=== PATIENT | female | born 1945 | race Hispanic/Latino ===

== ENCOUNTER → 2018-04-06 | Outpatient (CLI) | payer MEDICARE ==
[~2018-04-06] MED LIST: AMLO5TAB7 PO; CA C1TAB73 PO; CALC1TAB2 PO; FOLI1TAB15 PO; LOSA100T20 PO; LOVA40TA2 PO; NAPR375T6 PO
== END | disposition home or self-care (01) ==
LOC: RAH 08:51
PROVIDERS: ATTEND Internal Medicine
DX: Z12.31 Encounter for screening mammogram for malignant neoplasm of breast (principal)
CPT/HCPCS: 77067

== ENCOUNTER 2018-04-17 13:41 | Inpatient (IN) | payer MEDICARE ==
[~2018-04-17] VITALS: Ht 149.9 cm; Wt 79.0 kg
[2018-04-17 14:49] VITALS: BP 151/76
[2018-04-17 16:04] LABS: APPEARANCE,URINE Clear (CLEAR); BILIRUBIN,URINE Negative (NEGATIVE); COLOR,URINE Yellow (YELLOW); GLUCOSE, URINE (UA) Negative (NEGATIVE); KETONES,URINE Negative (NEGATIVE); LEUKOCYTE ESTERASE ,URINE Small (NEGATIVE); NITRATE,URINE Negative (NEGATIVE); OCCULT BLOOD,URINE Negative (NEGATIVE); PROTEIN,URINE Negative (NEGATIVE)
[2018-04-17] MEDS ORDERED: CHOL100040 PO (16:09)
[2018-04-17] MEDS ORDERED: calcium citrate PO (16:09)
[2018-04-17] MEDS ORDERED: FOLI0.8T PO (16:09)
[2018-04-17] MEDS ORDERED: AMLO5TAB7 PO (16:09)
[2018-04-17] MEDS ORDERED: LOVA40TA2 PO (16:09)
[2018-04-17] MEDS ORDERED: ASPI-891 PO (16:09)
[2018-04-17] MEDS ORDERED: LOSA100T20 PO (16:09)
[2018-04-17 16:24] LABS: BACTERIA,URINE None Seen /HPF (None Seen); RBC,URINE 0-1 /HPF (0-1); SQUAMOUS EPITHELIAL CELL,UR 0-2 /HPF (0-2); WBC,URINE 0-1 /HPF (0-1)
[2018-04-17] MEDS: CLINDAMYCIN 900 MG/D5% WATER 50 ML IV SCH (17:15)
[2018-04-20] VITALS (27 sets, daily range): BP systolic 93–167; BP diastolic 45–93
[2018-04-20] MEDS ORDERED: LACTATED RINGERS 1000ML 1,000 ML IV ONE (07:22)
[2018-04-20] MEDS ORDERED: TRANEXAMIC ACID 1000MG/10ML IV ONE (07:26)
[2018-04-20] MEDS ORDERED: CLINDAMYCIN PHOSPHATE 150 MG/ML 6ML VIAL ONE (07:26)
[2018-04-20] MEDS ORDERED: BUPIVACAINE/EPI/PF 0.25% 30ML VIAL IJ ONE (07:26)
[2018-04-20] MEDS ORDERED: ONDANSETRON HCL 4 MG/2 ML VIAL ONE (08:23)
[2018-04-20] MEDS ORDERED: GLYCOPYRROLATE 1 MG/5 ML SYRINGE ONE (08:23)
[2018-04-20] MEDS ORDERED: DEXAMETHASONE SOD PHOSPHATE 10MG/ML 1ML VIAL ONE (08:23)
[2018-04-20] MEDS ORDERED: PROPOFOL 10 MG/ML 20ML VIAL IV ONE (08:23)
[2018-04-20] MEDS ORDERED: LIDOCAINE PF 2% 5ML ABBOJECT ONE ×2 (08:23→08:24)
[2018-04-20] MEDS ORDERED: MIDAZOLAM HCL 1 MG/ML 2ML VIAL ONE (08:24)
[2018-04-20] MEDS ORDERED: NEOSTIGMINE 5MG/5ML SYR IV ONE (08:24)
[2018-04-20] MEDS ORDERED: ROCURONIUM 10MG/1ML SYR 10 MG/ML ML ONE (08:24)
[2018-04-20] MEDS ORDERED: FENTANYL CITRATE PF 50 MCG/1 ML 2ML VIAL ONE (08:24)
[2018-04-20] MEDS: CLINDAMYCIN 900 MG/D5% WATER 50 ML IV SCH (08:45)
[2018-04-20] MEDS ORDERED: ROPIVACAINE 0.5% 5MG/ML 30ML IJ ONE (09:11)
[2018-04-20] MEDS ORDERED: FERROUS FUMARATE 324 MG TABLET PO PRN (11:45)
[2018-04-20] MEDS ORDERED: TEMAZEPAM 15 MG CAPSULE PO PRN (11:45)
[2018-04-20] MEDS ORDERED: POTASSIUM CHLORIDE 20MEQ/100ML 100 ML IV PRN (11:45)
[2018-04-20] MEDS: ACETAMINOPHEN EXTRA STRENGTH 500 MG TABLET PO SCH ×2 (11:45→17:12)
[2018-04-20] MEDS ORDERED: DiphenhydrAMINE HCL 50 MG/ML VIAL IVP PRN (11:45)
[2018-04-20] MEDS ORDERED: LIDOCAINE HCL-MPF 1% 2ML VIAL IVP PRN (11:45)
[2018-04-20] MEDS ORDERED: ONDANSETRON HCL 4 MG/2 ML VIAL IVP PRN (11:45)
[2018-04-20] MEDS ORDERED: POTASSIUM CHLORIDE 20 MEQ ERTAB PO PRN (11:45)
[2018-04-20] MEDS ORDERED: CALCIUM CARBONATE 500 MG TABLET PO PRN (11:45)
[2018-04-20] MEDS: PHARMACY COMMUNICATION MISC SCH ×3 (13:51→19:16)
[2018-04-20] MEDS: OXYCODONE HCL 5 MG TAB PO PRN (13:56)
[2018-04-20] MEDS: SODIUM CHLORIDE 0.9% 1000ML 1,000 ML IV SCH ×2 (13:59→20:20)
[2018-04-20] MEDS: CLINDAMYCIN 900 MG/D5% WATER 50 ML IVPB SCH (17:11)
[2018-04-20] MEDS: KETOROLAC TROMETHAMINE 15MG/ML IV PRN (17:13)
[2018-04-20] MEDS: CALCIUM CARBONATE 500 MG TABLET PO SCH (20:18)
[2018-04-20] MEDS: CELECOXIB 200 MG CAP PO SCH (20:18)
[2018-04-20] MEDS: PREGABALIN 25 MG CAP PO SCH (20:19)
[2018-04-20] MEDS: ASPIRIN 325 MG TABLET PO SCH (20:19)
[2018-04-21] VITALS: BP 124/64
[2018-04-21] MEDS: CLINDAMYCIN 900 MG/D5% WATER 50 ML IVPB SCH (00:08)
[2018-04-21] MEDS: SODIUM CHLORIDE 0.9% 1000ML 1,000 ML IV SCH (03:28)
[2018-04-21] MEDS: ACETAMINOPHEN EXTRA STRENGTH 500 MG TABLET PO SCH ×3 (03:28→19:39)
[2018-04-21 04:00] VITALS: BP 109/59
[2018-04-21 04:41] LABS: HEMATOCRIT 32.6 % (36-48); MEAN CORPUSCULAR HEMOGLOBIN 31.9 pg (27.0-33.0); MEAN CORPUSCULAR HGB CONC 34.3 g/dL (32.0-36.0); MEAN CORPUSCULAR VOLUME 92.9 fL (79-99); NUCLEATED RED BLOOD CELLS 0.1 % (0.0-0.19); PLATELET COUNT (AUTO) 185 K/uL (130-400); RED BLOOD CELL COUNT(AUTO) 3.51 MIL/uL (4.00-5.50); RED CELL DISTRIBUTION WIDTH 12.8 % (11.0-15.5)
[2018-04-21 04:59] LABS: CREATININE 0.8 mg/dL (0.5-1.5); POTASSIUM 3.1 mmol/L (3.5-5.1)
[2018-04-21] MEDS: POTASSIUM CHLORIDE 10% ELIXIR 20 MEQ/15 ML UDCUP PO PRN ×3 (05:27→16:46)
[2018-04-21 08:35] VITALS: BP 111/58
[2018-04-21] MEDS: FOLIC ACID 1 MG TABLET PO SCH (08:56)
[2018-04-21] MEDS: ASPIRIN 325 MG TABLET PO SCH ×2 (08:56→19:39)
[2018-04-21] MEDS: CELECOXIB 200 MG CAP PO SCH ×2 (08:56→19:39)
[2018-04-21] MEDS: LOSARTAN 100 MG TABLET PO SCH (08:56)
[2018-04-21] MEDS: Cholecalciferol (Vitamin D3) (Vitamin D3) 1,000 UNIT PO SCH (08:57)
[2018-04-21] MEDS: POLYETHYLENE GLYCOL 3350 17 GM POWD.PACK PO SCH (08:57)
[2018-04-21] MEDS: PREGABALIN 25 MG CAP PO SCH ×2 (08:57→19:38)
[2018-04-21] MEDS: Lovastatin 40 MG PO SCH ×2 (08:57→19:40)
[2018-04-21] MEDS: CALCIUM CARBONATE 500 MG TABLET PO SCH ×2 (08:58→19:39)
[2018-04-21] MEDS: OXYCODONE HCL 5 MG TAB PO PRN ×4 (08:59→19:38)
[2018-04-21] MEDS: PANTOPRAZOLE SODIUM 40 MG TABLET.DR PO SCH (08:59)
[2018-04-21] MEDS ORDERED: FAMOTIDINE 20MG TAB 20 MG TAB PO SCH (09:00)
[2018-04-21 11:31] VITALS: BP 130/65
[2018-04-21] MEDS: AMLODIPINE BESYLATE 5 MG TAB PO SCH (11:45)
[2018-04-21] MEDS: KETOROLAC TROMETHAMINE 15MG/ML IV PRN (11:46)
[2018-04-21 16:48] VITALS: BP 132/56
[2018-04-21 20:00] VITALS: BP 144/65
[2018-04-22] VITALS (7 sets, daily range): BP systolic 100–140; BP diastolic 51–67
[2018-04-22] MEDS: ACETAMINOPHEN EXTRA STRENGTH 500 MG TABLET PO SCH ×3 (03:50→19:47)
[2018-04-22] MEDS: OXYCODONE HCL 5 MG TAB PO PRN ×3 (08:30→19:47)
[2018-04-22] MEDS: PREGABALIN 25 MG CAP PO SCH ×2 (08:30→19:47)
[2018-04-22] MEDS: POLYETHYLENE GLYCOL 3350 17 GM POWD.PACK PO SCH (08:30)
[2018-04-22] MEDS: PANTOPRAZOLE SODIUM 40 MG TABLET.DR PO SCH (08:31)
[2018-04-22] MEDS: AMLODIPINE BESYLATE 5 MG TAB PO SCH (08:31)
[2018-04-22] MEDS: CALCIUM CARBONATE 500 MG TABLET PO SCH ×2 (08:31→19:46)
[2018-04-22] MEDS: FOLIC ACID 1 MG TABLET PO SCH (08:31)
[2018-04-22] MEDS: CELECOXIB 200 MG CAP PO SCH ×2 (08:31→19:46)
[2018-04-22] MEDS: LOSARTAN 100 MG TABLET PO SCH (08:31)
[2018-04-22] MEDS: ASPIRIN 325 MG TABLET PO SCH ×2 (08:31→19:46)
[2018-04-22] MEDS: Cholecalciferol (Vitamin D3) (Vitamin D3) 1,000 UNIT PO SCH (08:36)
[2018-04-22] MEDS: Lovastatin 40 MG PO SCH (19:47)
[2018-04-23] MEDS: OXYCODONE HCL 5 MG TAB PO PRN ×4 (01:07→15:31)
[2018-04-23] MEDS: ACETAMINOPHEN EXTRA STRENGTH 500 MG TABLET PO SCH ×2 (03:54→11:24)
[2018-04-23 04:48] VITALS: BP 118/55
[2018-04-23] MEDS ORDERED: BISACODYL 10 MG SUPP.RECT RC ONE (05:18)
[2018-04-23 08:02] VITALS: BP 128/65
[2018-04-23] MEDS: CALCIUM CARBONATE 500 MG TABLET PO SCH (08:31)
[2018-04-23] MEDS: POLYETHYLENE GLYCOL 3350 17 GM POWD.PACK PO SCH (08:31)
[2018-04-23] MEDS: AMLODIPINE BESYLATE 5 MG TAB PO SCH (08:32)
[2018-04-23] MEDS: ASPIRIN 325 MG TABLET PO SCH (08:32)
[2018-04-23] MEDS: PREGABALIN 25 MG CAP PO SCH (08:32)
[2018-04-23] MEDS: CELECOXIB 200 MG CAP PO SCH (08:32)
[2018-04-23] MEDS: PANTOPRAZOLE SODIUM 40 MG TABLET.DR PO SCH (08:32)
[2018-04-23] MEDS: LOSARTAN 100 MG TABLET PO SCH (08:32)
[2018-04-23] MEDS: FOLIC ACID 1 MG TABLET PO SCH (08:32)
[2018-04-23] MEDS: Cholecalciferol (Vitamin D3) (Vitamin D3) 1,000 UNIT PO SCH (08:38)
[2018-04-23 11:09] VITALS: BP 126/57
[2018-04-23] MEDS ORDERED: BISACODYL 10 MG SUPP.RECT RC PRN (11:45)
[2018-04-23] MEDS ORDERED: HYDR-4457 PO (13:13)
[2018-04-23] MEDS ORDERED: ASPI-1012 PO (13:13)
== END 2018-04-23 17:15 | DRG 470 ==
LOC: EDSTATUS 14:30 → DAHIP 04-20 06:17 → 4AH 04-20 10:44
PROVIDERS: ADMIT Orthopaedic Surgery; ATTEND Orthopaedic Surgery
PROC: 0SRC0J9 Replacement of Right Knee Joint with Synthetic Substitute, Cemented, Open Approach (ICD-10-PCS; principal; 2018-04-20 08:22)
DX: M17.11 Unilateral primary osteoarthritis, right knee (principal); I10 Essential (primary) hypertension; K21.9 Gastro-esophageal reflux disease without esophagitis; E78.00 Pure hypercholesterolemia, unspecified; H26.9 Unspecified cataract; G89.29 Other chronic pain; Z98.51 Tubal ligation status; Z90.49 Acquired absence of other specified parts of digestive tract; Z83.3 Family history of diabetes mellitus; Z82.49 Family history of ischemic heart disease and other diseases of the circulatory system; Z88.0 Allergy status to penicillin; Z88.8 Allergy status to other drugs, medicaments and biological substances
CPT/HCPCS: 36415; 80048; 81001; 85027; 88305; 88311; J1100; J1885; J2001; J2250; J2405; J2704; J2710; J2795; J3010; J3490; J7030; J7120

== ENCOUNTER 2018-10-06 07:43 | Day surgery (SDC) | payer MEDICARE ==
[~2018-10-06] VITALS: Ht 152.4 cm; Wt 70.3 kg
[~2018-10-06 07:43] MED LIST changes: -AMLO5TAB7 PO; +AMLO5TAB9 PO; +ASPI-1012 PO; -CA C1TAB73 PO; -CALC1TAB2 PO; +CHOL100040 PO; +FOLI0.8T PO; -FOLI1TAB15 PO; -LOSA100T20 PO; +LOSA100T58 PO; -NAPR375T6 PO; +SODIUM CHLORIDE 0.9% 1000ML 1,000 ML IV ONE; +calcium citrate PO
[2018-10-06] MEDS ORDERED: WHEA1POW2 PO (09:43)
[2018-10-06] MEDS ORDERED: GLYCOPYRROLATE 0.2 MG/ML 5 ML VIAL ONE (11:08)
[2018-10-06 11:18] VITALS: BP 125/57
[2018-10-06 11:24] VITALS: BP 139/62
[2018-10-06 11:30] VITALS: BP 135/55
[2018-10-06 11:36] VITALS: BP 128/67
== END 2018-10-06 11:44 | disposition home or self-care (01) ==
LOC: ENDO 07:43 → DAH 07:43 → ENDO 11:44
PROVIDERS: ATTEND Internal Medicine
DX: Z12.11 Encounter for screening for malignant neoplasm of colon (principal); D12.8 Benign neoplasm of rectum; K57.30 Diverticulosis of large intestine without perforation or abscess without bleeding; E78.5 Hyperlipidemia, unspecified; I10 Essential (primary) hypertension; M19.90 Unspecified osteoarthritis, unspecified site; Z68.31 Body mass index [BMI] 31.0-31.9, adult; Z79.899 Other long term (current) drug therapy; Z98.890 Other specified postprocedural states; Z98.49 Cataract extraction status, unspecified eye; Z88.0 Allergy status to penicillin; K64.0 First degree hemorrhoids
CPT/HCPCS: 45380; 88305; A4606; J3490; J7030

== ENCOUNTER → 2019-04-07 | Outpatient (CLI) | payer MEDICARE ==
[~2019-04-07] MED LIST changes: -SODIUM CHLORIDE 0.9% 1000ML 1,000 ML IV ONE; +WHEA1POW2 PO
== END | disposition home or self-care (01) ==
LOC: RAH 08:43
PROVIDERS: ATTEND Internal Medicine
DX: Z12.31 Encounter for screening mammogram for malignant neoplasm of breast (principal)
CPT/HCPCS: 77067

== ENCOUNTER → 2019-10-26 | Outpatient (CLI) | payer MEDICARE | END | disposition home or self-care (01) | LOC: RAH 11:16 | PROVIDERS: ATTEND Internal Medicine | DX: R07.9 Chest pain, unspecified (principal); Z90.49 Acquired absence of other specified parts of digestive tract | CPT/HCPCS: 71046 ==

== ENCOUNTER → 2020-04-07 | Outpatient (CLI) | payer MEDICARE ==
[~2020-04-07] MED LIST changes: +AMLO-257 PO; -AMLO5TAB9 PO
== END | disposition home or self-care (01) ==
LOC: RAH 09:33
PROVIDERS: ATTEND Internal Medicine
DX: Z12.31 Encounter for screening mammogram for malignant neoplasm of breast (principal); N64.89 Other specified disorders of breast
CPT/HCPCS: 77067

== ENCOUNTER → 2021-09-17 | Outpatient (CLI) | payer MEDICARE ==
[~2021-09-17] MED LIST changes: -FOLI0.8T PO; +FOLI0.8T3 PO
== END | disposition home or self-care (01) ==
LOC: RAH 13:36
PROVIDERS: ATTEND Internal Medicine
DX: M16.11 Unilateral primary osteoarthritis, right hip (principal); M47.816 Spondylosis without myelopathy or radiculopathy, lumbar region; M48.07 Spinal stenosis, lumbosacral region; Z90.49 Acquired absence of other specified parts of digestive tract
CPT/HCPCS: 72100; 73502

== ENCOUNTER → 2022-05-10 | Outpatient (CLI) | payer MEDICARE | END | disposition home or self-care (01) | LOC: RAH 13:43 | PROVIDERS: ATTEND Internal Medicine | DX: Z12.31 Encounter for screening mammogram for malignant neoplasm of breast (principal) | CPT/HCPCS: 77067 ==

== ENCOUNTER → 2022-05-23 | Outpatient (CLI) | payer MEDICARE | END | disposition home or self-care (01) | LOC: RAH 13:35 | PROVIDERS: ATTEND Internal Medicine | DX: I07.1 Rheumatic tricuspid insufficiency (principal); I11.9 Hypertensive heart disease without heart failure; M19.90 Unspecified osteoarthritis, unspecified site | CPT/HCPCS: 93306 ==

== ENCOUNTER → 2022-09-20 | Outpatient (CLI) | payer MEDICARE ==
[~2022-09-20] MED LIST changes: +IOHEXOL-350 75 ML VIAL IV ONE
== END | disposition home or self-care (01) ==
LOC: RAH 09:36
PROVIDERS: ATTEND Internal Medicine Gastroenterology
DX: N20.0 Calculus of kidney (principal); R10.31 Right lower quadrant pain; Z90.49 Acquired absence of other specified parts of digestive tract
CPT/HCPCS: 74178; Q9967

== ENCOUNTER → 2023-06-19 | Outpatient (CLI) | payer OTHER ==
[~2023-06-19] MED LIST changes: -IOHEXOL-350 75 ML VIAL IV ONE; -LOSA100T58 PO; +LOSA100T59 PO
== END | disposition home or self-care (01) ==
LOC: RAH 10:39
PROVIDERS: ATTEND Internal Medicine Cardiovascular Disease
DX: Z13.6 Encounter for screening for cardiovascular disorders (principal)
CPT/HCPCS: 75571

== ENCOUNTER → 2023-07-11 | Outpatient (CLI) | payer MEDICARE ==
[~2023-07-11] MED LIST changes: +IOHEXOL 350 MG/ML 100ML INFUS..BTL IV ONE; +METOPROLOL TARTRATE 1 MG/ML 5ML VIAL IV ONE
== END | disposition home or self-care (01) ==
LOC: RAH 07:47
PROVIDERS: ATTEND Internal Medicine Cardiovascular Disease
DX: M47.815 Spondylosis without myelopathy or radiculopathy, thoracolumbar region (principal); I25.10 Atherosclerotic heart disease of native coronary artery without angina pectoris
CPT/HCPCS: 75574; J3490; Q9967

== ENCOUNTER → 2023-07-21 | Outpatient (CLI) | payer MEDICARE ==
[~2023-07-21] MED LIST changes: -IOHEXOL 350 MG/ML 100ML INFUS..BTL IV ONE; -METOPROLOL TARTRATE 1 MG/ML 5ML VIAL IV ONE
== END | disposition home or self-care (01) ==
LOC: RAH 11:29
PROVIDERS: ATTEND Internal Medicine
DX: Z12.31 Encounter for screening mammogram for malignant neoplasm of breast (principal)
CPT/HCPCS: 77067

== ENCOUNTER → 2024-08-30 | Outpatient (CLI) | payer MEDICARE ==
--- NOTE | 2024-08-30 14:49 | HMCIMG ---
Lumbar spine 2 views Clinical Information: LOW BACK PAIN Comparison: None Findings: Exam of the lumbosacral spine demonstrates no evidence of fracture, subluxation. There are spondylitic changes and there are degenerative changes of the facet joints. There is straightening of the spine consistent with spasm. There is narrowing of the L5-S1 intervertebral disc space consistent with degenerative disc disease. The other disc spaces are intact. Bone mineralization is normal. Impression: Degenerative disc disease suspected at L5-S1. Other degenerative and chronic changes as noted.
== END | disposition home or self-care (01) ==
LOC: RAH 13:33
PROVIDERS: ATTEND Internal Medicine
DX: M51.370 Other intervertebral disc degeneration, lumbosacral region with discogenic back pain only (principal); M48.07 Spinal stenosis, lumbosacral region; M51.379 Other intervertebral disc degeneration, lumbosacral region without mention of lumbar back pain or lower extremity pain
CPT/HCPCS: 72100

== ENCOUNTER → 2024-11-19 | Outpatient (CLI) | payer MEDICARE ==
--- NOTE | 2024-11-19 12:10 | HMCIMG ---
CHEST 2VWS HISTORY: Preop COMPARISON: 10/26/2019 FINDINGS: Frontal and lateral projections of the chest were obtained. There is no acute pulmonary infiltrates or failure. The heart is not enlarged. No evidence of aortic calcification is seen. Degenerative changes are seen of the thoracolumbar spine. IMPRESSION: 1. No acute pulmonary infiltrates.
== END | disposition home or self-care (01) ==
LOC: RAH 11:33
PROVIDERS: ATTEND Internal Medicine
DX: Z01.818 Encounter for other preprocedural examination (principal); I12.9 Hypertensive chronic kidney disease with stage 1 through stage 4 chronic kidney disease, or unspecified chronic kidney disease; N18.9 Chronic kidney disease, unspecified; M47.815 Spondylosis without myelopathy or radiculopathy, thoracolumbar region
CPT/HCPCS: 71046

== ENCOUNTER → 2025-03-31 | Outpatient (CLI) | payer MEDICARE ==
[~2025-03-31] MED LIST changes: -ASPI-1012 PO; +ASPI-1146 PO; +CALC-1125 PO; +CHOL100034 PO; -CHOL100040 PO; -FOLI0.8T3 PO; +HYDR-4060 PO; -WHEA1POW2 PO; -calcium citrate PO
--- NOTE | 2025-03-31 16:37 | HMCIMG ---
CHEST 2VWS REASON: ENCOUNTER FOR OTHER PREPROCEDURAL EXAMINATION COMPARISON: Prior chest radiograph from 11/19/2024 is available. FINDINGS: Two views of the chest were obtained. Lungs are clear. Heart size is normal. There is no pulmonary vascular congestion. Mediastinum appears to be normal. The bony thorax demonstrate mild osteopenia. There is reversed right shoulder arthroplasty.. IMPRESSION: No acute cardiopulmonary process..
== END | disposition home or self-care (01) ==
LOC: RAH 15:26
PROVIDERS: ATTEND Internal Medicine
DX: Z01.818 Encounter for other preprocedural examination (principal); I12.9 Hypertensive chronic kidney disease with stage 1 through stage 4 chronic kidney disease, or unspecified chronic kidney disease; N18.9 Chronic kidney disease, unspecified; Z96.611 Presence of right artificial shoulder joint
CPT/HCPCS: 71046

== ENCOUNTER 2025-04-03 15:10 | Emergency (ER) | payer MEDICARE ==
[~2025-04-03] VITALS: Ht 147.3 cm; Wt 76.0 kg
--- NOTE | 2025-04-03 16:31 | HMCIMG ---
EXAM: CR right Shoulder, 2 View. CLINICAL HISTORY: r/o fx COMPARISON: None provided. FINDINGS: BONES: Right shoulder arthroplasty No fracture. No dislocation JOINTS: Moderate degenerative changes with subacromial spurring acromioclavicular joint SOFT TISSUES: The soft tissues are unremarkable. MISCELLANEOUS: Appears in alignment. IMPRESSION: 1. Right shoulder arthroplasty 2. Appears in alignment. 3. No fracture. No dislocation 4. Moderate degenerative changes with subacromial spurring acromioclavicular joint /[place]
[2025-04-03] MEDS: HYDROcodone/APAP 5/325 1 TAB TABLET PO ONE (16:46)
--- NOTE | 2025-04-03 17:21 | ERN ---
General Chief Complaint: Shoulder Injury/Pain Stated Complaint: RT SHOULDER PAIN Time Seen by MD: 15:12 Time Seen by Midlevel: 15:12 Source: patient History of Present Illness Initial Comments 72-year-old female presents to the emergency department for evaluation of right shoulder pain. She reports having a shoulder replacement performed on November of this year. However, over the last week the patient has been having increased pain to the previous surgical site. Denies any direct injury or fall. Allergies: Coded Allergies: Penicillins (Unverified Allergy, Severe, HIVES, 06/11/13) alendronate sodium (Unverified Allergy, Unknown, 04/17/18) famotidine (Unverified Allergy, Unknown, 04/17/18) rosuvastatin (Unverified Allergy, Unknown, 04/17/18) Uncoded Allergies: ppd (Allergy, Unknown, rash, 08/04/15) Home Meds Active Scripts Ketorolac Tromethamine (Ketorolac Tromethamine) 10 Mg Tablet, 1 TAB PO BID for pain for 5 Days, #10 TAB 0 Refills Prov:SARAH RHOADES 04/03/25 Hydrocodone/Acetaminophen (Hydrocodon-Acetaminophen 5-325) 5 Mg-325 Mg Tablet, 1-2 EACH PO Q8H for acute post-op pain (G89.18) for 7 Days, #42 TAB 0 Refills Prov:NASRIN RODRIGUES MD 12/17/24 Reported Medications Cholecalciferol (Vitamin D3) (Vitamin D3) 25 Mcg (1000 Unit) Tab.chew, 25 MCG PO DAILY, TAB.CHEW 12/14/24 Calcium Carbonate (Calcium) 600 Mg Calcium (1500 Mg) Tablet, 1200 MG PO DAILYBKFST, TAB 12/14/24 Aspirin (Ecotrin) 325 Mg Tablet.dr, 325 MG PO HS, TAB 12/14/24 Lovastatin (Lovastatin) 40 Mg Tablet, 40 MG PO HS, TAB 04/17/18 Losartan Potassium (Losartan Potassium) 100 Mg Tablet, 100 MG PO HS, TAB 04/17/18 Amlodipine Besylate (Amlodipine Besylate) 5 Mg Tablet, 5 MG PO HS, TAB 04/17/18 Past Medical History Past Medical History: High Cholesterol, Hypertension Past Surgical History: Cholecystectomy Surgical History Other: RT SHOULDER SX, RT KNEE SX Female( History) History: Not Applicable ROS Dictation CONSTITUTIONAL: Negative except for HPI HEAD/FACE: Negative except for HPI EENT: Negative except for HPI RESPIRATORY: Negative except for HPI GASTROINTESTINAL/ABDOMINAL: Negative except for HPI GENITOURINARY: Negative except for HPI MUSCULOSKELETAL: Negative except for HPI INTEGUMENTARY: Negative except for HPI NEUROLOGICAL/PSYCH: Negative except for HPI HEMATOLOGIC/LYMPHATIC: Negative except for HPI All Systems Negative, Except as noted above. 13 point review of systems assessed and all negative except for above. Physical Exam Physical Exam Dictation Vital Signs reviewed General Appearance: Alert, oriented x 3, no acute distress, well developed, nourished. Head and Face: non-traumatic. Eyes: PERRL, pink conjunctivas, eyelid no trauma, anterior chamber with arcus senilis. Ears: Pinnas intact and no signs of trauma or erythema ear canals clear and no discharge TM no erythema Nose: No discharge, no bleeding. Oropharynx: Mouth normal, tongue pink, pharynx clear,no erythema, tonsils no exudates, no abscesses noted, mucous membrane moist Neck: Supple, non-tender, no thyromegaly, no masses, no JVD, no bruits Breast:Deferred Chest:No tenderness, no crepitus, no paradoxical movement, no retractions Lungs:Clear, well-ventilated, symmetric, no rales, no wheezing, no rhonchi, no stridor, good breath sounds bilaterally Heart: Regular rate, regular rhythm, no murmur, no gallops Vascular: no peripheral edema, Abdomen: Soft, positive bowel sounds, nondistended, no guarding, nontender, no rebound, no masses no hepatomegaly, no splenomegaly, no Edmonds's sign, no hernias. Rectal: Deferred Genital: Deferred Neurological: Normal speech, motor function intact, sensory function intact Musculoskeletal: Neck nontender, full range of motion, back nontender, full range of motion, Extremities: nontender, full range of motion Skin: Color pink, dry, no turgor, no rash, no lacerations, no abrasions, no contusions. Lymphatic: Deferred MDM MDM: Differential diagnosis: Fracture, contusion, dislocation, strain There are no social concerns with this patient. Prescription drug management Prescriptions will include: None Medical management and examination interpretation discussions were had by me with other qualified healthcare professionals as indicated for the patient's care. ED Course Orders Procedure Category Date Status Time Hydrocodone/Apap PHA 04/03/25 Complete 5/325 ([place] 5/325mg) 15:30 Shoulder Comp 2+Vws Rt RAD 04/03/25 Resulted 15:12 Current Medications Medications (Trade) Dose Ordered Sig/Jad Route PRN Reason Start Time Stop Time Status Last Admin Dose Admin Acetaminophen/ Hydrocodone Bitart (NORco 5/325MG) 1 tab ONCE ONCE PO 04/03/25 15:30 04/03/25 15:31 DC 04/03/25 16:46 Vital Signs Date Time Temp Pulse Resp B/P (MAP) Pulse Ox O2 Delivery O2 Flow Rate FiO2 04/03/25 17:46 98.2 72 16 137/59 96 Room Air* 0 21 04/03/25 16:48 98.2 71 16 127/54 96 Room Air* 0 21 04/03/25 15:13 98.1 68 18 144/74 98 Room Air [address] [id number] IMAGING REPORT Signed PATIENT: JIMY DIAZ MR#: [id number] : 1945 SEX: F AGE: 80 LOCATION: ED ORDER 13 STATUS: REG ER REPORT#: [id number] SERVICE 11 REASON: r/o fx ORDERING PHYSICIAN: SARAH RHOADES PAC PROCEDURE: SHOL 2V RT - SHOULDER COMP 2+VWS RT EXAM: CR right Shoulder, 2 View. CLINICAL HISTORY: r/o fx COMPARISON: None provided. FINDINGS: BONES: Right shoulder arthroplasty No fracture. No dislocation JOINTS: Moderate degenerative changes with subacromial spurring acromioclavicular joint SOFT TISSUES: The soft tissues are unremarkable. MISCELLANEOUS: Appears in alignment. IMPRESSION: 1. Right shoulder arthroplasty 2. Appears in alignment. 3. No fracture. No dislocation 4. Moderate degenerative changes with subacromial spurring acromioclavicular joint /[place] DICTATED BY: BRITTANI POWER MD DATE: 04/03/251729 ELECTRONICALLY SIGNED BY: BRITTANI POWER MD DATE: 04/03/251729 DX & DISP Disposition: Discharge Departure Impression: Primary Impression: History of right shoulder replacement Additional Impression: Right shoulder pain Condition: Stable Scripts Ketorolac Tromethamine (Ketorolac Tromethamine) 10 Mg Tablet 1 TAB PO BID for pain for 5 Days, #10 TAB 0 Refills Prov: SARAH RHOADES PAC 04/03/25 Additional Instructions: Your shoulder x-ray shows findings consistent with a previous surgery. Your bones and hardware have normal alignment. There was no evidence of a fracture or dislocation. Your pain could be related to your previous surgery. You will need follow up with your primary care doctor and cash processing specialist outpatient further evaluation. No need for emergent intervention at this time. Referrals: GIULIANA HORN MD (PCP) Time of Disposition: 17:28 I have reviewed the case, and I agree with, Diagnosis and Plan I performed the substantive portion of the visit. I have reviewed and personally made and approve the management plan that is documented in the note by myself or the LAUREN. I acknowledge for responsibility for the patient's management plan. SARAH RHOADES PAC Apr 03, 2025 17:21
[2025-04-03] MEDS ORDERED: KETO10TA2 PO (17:31)
[2025-04-03 17:46] VITALS: BP 137/59; PULSE 72; RESP 16; TEMP 98.2; O2SAT 96
== END 2025-04-03 17:49 | disposition home or self-care (01) ==
LOC: EDH 15:10
DX: M25.511 Pain in right shoulder (principal); I10 Essential (primary) hypertension; E78.00 Pure hypercholesterolemia, unspecified; Z88.0 Allergy status to penicillin; Z79.82 Long term (current) use of aspirin; Z90.49 Acquired absence of other specified parts of digestive tract; Z96.611 Presence of right artificial shoulder joint
CPT/HCPCS: 73030; 99283